=== PATIENT | male | born 1940 | race Caucasian/White ===

== ENCOUNTER 2024-02-24 02:56 | Observation (INO) | payer MEDICARE ==
[~2024-02-24] VITALS: Ht 188 cm; Wt 90.0 kg
[2024-02-24] VITALS (18 sets, daily range): BP systolic 82–125; BP diastolic 49–77
[2024-02-24] MEDS ORDERED: Ondansetron HCl 2 MG / ML 2ML Vial IV PRN ×3 (03:15→06:20)
[2024-02-24 03:34] LABS: BASOPHILS ABSOLUTE AUTO 0.03 K/mm3 (0.00-0.23); BASOPHILS PERCENT AUTO 1 % (0-2); EOSINOPHILS ABSOLUTE AUTO 0.24 K/mm3 (0.00-0.68); EOSINOPHILS PERCENT AUTO 5 % (0-6); Hematocrit 43.6 % (37.0-53.0); Hemoglobin 14.4 g/dL (13.5-17.5); IMMATURE GRAN ABSOLUTE AUTO 0.01 K/mm3 (0.00-0.10); IMMATURE GRAN PERCENT AUTO 0 % (0-1); LYMPHOCYTES ABSOLUTE AUTO 2.05 K/mm3 (0.84-5.20); LYMPHOCYTES PERCENT AUTO 40 % (21-46); MONOCYTES ABSOLUTE AUTO 0.47 K/mm3 (0.16-1.47); MONOCYTES PERCENT AUTO 9 % (4-13); Mean Corpuscular HGB 29.9 pg (26.0-34.0); Mean Corpuscular Volume 91 fL (80-100); Mean Platelet Volume 12.7 fL (9.1-12.4); NEUTROPHILS ABSOLUTE AUTO 2.36 K/mm3 (1.96-9.15); NEUTROPHILS PERCENT AUTO 46 % (41-73); Platelet Count 182 K/mm3 (150-400); RDW Coefficient Variation 12.7 % (11.7-14.2); RDW Standard Deviation 41.8 fL (35.1-46.3); Red Blood Cell Count 4.81 M/mm3 (4.30-5.90); White Blood Cell Count 5.16 K/mm3 (4.00-11.30)
[2024-02-24] MEDS ORDERED: Aspirin 81 MG Chew PO ONE (03:35)
[2024-02-24] MEDS ORDERED: Nitroglycerin 0.4 MG SUBL SL PRN ×2 (03:35→06:10)
[2024-02-24 03:53] LABS: Albumin, Blood 3.5 g/dL (3.4-5.0); Albumin/Globulin Ratio 1.1 (0.8-1.8); Bilirubin, Total 0.5 mg/dL (0.1-1.0); Bun/Creatinine Ratio 23.9 (12.0-20.0); Calcium, Blood 10.8 mg/dL (8.5-10.1); Creatinine, Blood 1.13 mg/dL (0.60-1.20); Globulin, Blood 3.3 g/dL (2.2-4.0); Potassium, Blood 3.8 mmol/L (3.5-5.5); Total Protein, Blood 6.8 g/dL (6.4-8.2)
[2024-02-24] MEDS ORDERED: NS 1,000 ML IV SCH ×3 (04:10→23:50)
[2024-02-24] MEDS ORDERED: Heparin Sodium 5000 Units/ML 1ML MDV IV ONE (04:10)
[2024-02-24] MEDS ORDERED: Ticagrelor 90 MG TABLET PO ONE ×2 (04:10→06:15)
[2024-02-24] MEDS ORDERED: Midazolam HCl 1MG / ML 2ML Vial ONE ×2 (04:31→05:10)
[2024-02-24] MEDS ORDERED: FentaNYL Citrate 50 MCG/ML 2 ML Injection ONE ×2 (04:31→05:22)
[2024-02-24] MEDS ORDERED: NS 2,000 ML IV ONE (04:32)
[2024-02-24] MEDS ORDERED: Nitroglycerin 2 MG/20 ML BTL ONE (04:32)
[2024-02-24] MEDS ORDERED: NiCARdipine HCL 1,000 MCG/5 ML SYR ONE (04:32)
[2024-02-24] MEDS ORDERED: Heparin Sodium 1000 Units/ML 10ML MDV ONE (04:32)
[2024-02-24] MEDS ORDERED: NS 250 ML IV ONE (04:33)
[2024-02-24] MEDS ORDERED: Atropine Sulfate 0.1 MG/ML 10ML SYR ONE (04:50)
[2024-02-24] MEDS ORDERED: Phenylephrine HCl 100 MCG/ML-NS 10MLSYR (1MG/10ML) ONE (05:19)
[2024-02-24] MEDS ORDERED: Acetaminophen 325 MG TABLET PO PRN (06:10)
[2024-02-24] MEDS ORDERED: Acetaminophen/Codeine 300-30 mg PO PRN (06:10)
[2024-02-24] MEDS ORDERED: Heparin Sodium,Porcine 5,000 UNIT/0.5 ML SDV SC ONE (06:15)
[2024-02-24] MEDS ORDERED: FentaNYL Citrate 50 MCG/ML 2 ML Injection IV PRN (06:20)
[2024-02-24] MEDS ORDERED: FLU VACC TS2024-25(6MOS UP)/PF 45 MCG/0.5 ML SYRINGE IM SCH (06:20)
[2024-02-24 06:46] LABS: Hematocrit 42.6 % (37.0-53.0); Hemoglobin 13.7 g/dL (13.5-17.5); Mean Corpuscular HGB 30.1 pg (26.0-34.0); Mean Corpuscular HGB Conc 32.2 g/dL (31.5-36.5); Mean Corpuscular Volume 94 fL (80-100); Mean Platelet Volume 12.9 fL (9.1-12.4); Platelet Count 148 K/mm3 (150-400); RDW Coefficient Variation 12.7 % (11.7-14.2); RDW Standard Deviation 43.8 fL (35.1-46.3); Red Blood Cell Count 4.55 M/mm3 (4.30-5.90); White Blood Cell Count 6.44 K/mm3 (4.00-11.30)
[2024-02-24 07:27] LABS: Anion Gap 8 mmol/L (3-11); Blood Urea Nitrogen 26 mg/dL (8-24); Bun/Creatinine Ratio 25.7 (12.0-20.0); CHOL/HDL RATIO 3.6; CO2, Blood 24 mmol/L (21-32); Chloride, Blood 113 mmol/L (98-108); Cholesterol 160 mg/dL (50-200); Creatinine, Blood 1.01 mg/dL (0.60-1.20); Glomerular Filtration Rate 74 (60-); Glucose, Blood 101 mg/dL (70-99); HDL Cholesterol 44 mg/dL (>39); LDL/HDL RATIO 2.4; Low Density Lipoprotein Chol 106 mg/dL (0-110); Potassium, Blood 3.8 mmol/L (3.5-5.5); Sodium, Blood 141 mmol/L (136-145); Triglycerides 49 mg/dL (30-160); Very Low Density Lipoprot Chol 9 mg/dL (6-32)
[2024-02-24] MEDS ORDERED: Pantoprazole Sodium 40 MG Tab PO SCH (07:30)
[2024-02-24] MEDS ORDERED: Apixaban 5 MG Tab PO SCH (09:00)
[2024-02-24] MEDS ORDERED: Enoxaparin 40 MG/0.4 ML SYR SC SCH (09:00)
[2024-02-24] MEDS ORDERED: NS 500 ML IV PRN (11:40)
--- NOTE | 2024-02-24 18:29 | NUR ---
Summary. Pt alert and oriented, independent in room. Requires help with cords/lines when ambulating in room otherwise staff not needed for ADLs. R/radial access site intact, occlusive dressing in place. TR band deflated and removed this morning, armboard remains in place. Per Dr. Foster, if patient remains stable overnight, there is a good chance he can be discharged tomorrow from cardiology viewpoint. Pt asymptomatic all shift, no acute events. See chart for further details.
--- NOTE | 2024-02-24 20:56 | NUR ---
Assumed care of pt at 1900. Pt up in room to use restroom, at bedside. Line assist provided. Pt reports bm and that he voided. Sts regular w/ no complaints. PT returns self to bed. Reports mild sob after ambulating. Denies cp or other symptoms. Pt is alert and oriented, cooperative w/ care. Lung sounds clear, pt maintaining 02 sats >95% on room air. Pt on continuous linen clerk- afib rate of 60s. Bp stable. Arm board in place to r. wrist. R. radial site assessed and is clean, dry, intact. No hematoma or oozing observed. Pt provided call light and boosted in bed, denies further needs. Plan of care ongoing.
[2024-02-24] MEDS ORDERED: Clopidogrel Bisulfate 300 MG Cap PO ONE (21:00)
[2024-02-24] MEDS ORDERED: Atorvastatin 40 MG Tab PO SCH (21:00)
[2024-02-24] MEDS ORDERED: Ticagrelor 90 MG TABLET PO SCH (21:00)
--- NOTE | 2024-02-24 23:48 | NUR ---
Provider Chet called regarding low bps depsite 500ml bolus. Orders for additional bolus of 500ml of ns, followed by maintenance fluids at 150ml/hr ns. Will continue to monitor.
[2024-02-25] VITALS (8 sets, daily range): BP systolic 87–111; BP diastolic 53–91
--- NOTE | 2024-02-25 03:02 | NUR ---
TRANSFER SUMMARY PT TX TO PCU ROOM 19 VIA W/C, ACCOMPANIED BY THIS RN. PT ALERT AND ORIENTED. BELONGINGS INCLUDING PHONE, GLASSES, AND CLOTHING BROUGHT WITH PT. REPORT GIVEN TO PATRICIA CONCEPCION.
--- NOTE | 2024-02-25 03:18 | NUR ---
PT TRANSFERRED FROM ICU 16 TO PCU 19. PT ALERT AND ORIENTED TO BASELINE, ABLE TO STAND AND TRANSFER FROM WHEELCHAIR TO PCU BED. PT WIHT R RADIAL SITE CLEAR DRESSING IN PLACE, NO HEMATOMA OR BLEEDING NOTED AROUND THE SITE. VITALS HRR SR 75, SBP 110'S MAP >65, SATS ABOVE 95% ON RA, AFEBRILE. PT DENIES ANY CHCEST PAIN OR DISCOMFORT OR ANY SOB WIHT EXERTION. PT WENT BACK TO BED CURRENTLY RESTING. CALL LIGHTS IN REACH WILL CONTINUE TO MONITOR
[2024-02-25 04:28] LABS: BASOPHILS ABSOLUTE AUTO 0.03 K/mm3 (0.00-0.23); BASOPHILS PERCENT AUTO 1 % (0-2); EOSINOPHILS ABSOLUTE AUTO 0.17 K/mm3 (0.00-0.68); EOSINOPHILS PERCENT AUTO 3 % (0-6); Hematocrit 39.5 % (37.0-53.0); Hemoglobin 12.5 g/dL (13.5-17.5); IMMATURE GRAN ABSOLUTE AUTO 0.01 K/mm3 (0.00-0.10); IMMATURE GRAN PERCENT AUTO 0 % (0-1); LYMPHOCYTES ABSOLUTE AUTO 1.23 K/mm3 (0.84-5.20); LYMPHOCYTES PERCENT AUTO 22 % (21-46); MONOCYTES ABSOLUTE AUTO 0.49 K/mm3 (0.16-1.47); MONOCYTES PERCENT AUTO 9 % (4-13); Mean Corpuscular HGB 29.5 pg (26.0-34.0); Mean Corpuscular HGB Conc 31.6 g/dL (31.5-36.5); Mean Corpuscular Volume 93 fL (80-100); Mean Platelet Volume 12.4 fL (9.1-12.4); NEUTROPHILS ABSOLUTE AUTO 3.64 K/mm3 (1.96-9.15); NEUTROPHILS PERCENT AUTO 65 % (41-73); Platelet Count 150 K/mm3 (150-400); RDW Standard Deviation 44.7 fL (35.1-46.3); Red Blood Cell Count 4.24 M/mm3 (4.30-5.90); White Blood Cell Count 5.57 K/mm3 (4.00-11.30)
[2024-02-25 04:56] LABS: Albumin, Blood 2.7 g/dL (3.4-5.0); Albumin/Globulin Ratio 1.1 (0.8-1.8); Bilirubin, Total 0.6 mg/dL (0.1-1.0); Bun/Creatinine Ratio 17.9 (12.0-20.0); Calcium, Blood 9.5 mg/dL (8.5-10.1); Creatinine, Blood 1.12 mg/dL (0.60-1.20); Globulin, Blood 2.5 g/dL (2.2-4.0); Potassium, Blood 3.9 mmol/L (3.5-5.5); Total Protein, Blood 5.2 g/dL (6.4-8.2)
[2024-02-25] MEDS ORDERED: Aspirin 81 MG TabEC PO SCH (09:00)
[2024-02-25] MEDS ORDERED: Clopidogrel Bisulfate 75 MG Tab PO SCH (09:00)
[2024-02-25] MEDS ORDERED: ACET325 PO (09:37)
[2024-02-25] MEDS ORDERED: ELIQUIS5 M2 PO (09:37)
[2024-02-25] MEDS ORDERED: ATOR80 PO (09:38)
[2024-02-25] MEDS ORDERED: CLOP75 PO (09:38)
[2024-02-25] MEDS ORDERED: PANT40 PO (09:39)
[2024-02-25] MEDS ORDERED: NITR.4SL SL (10:10)
--- NOTE | 2024-02-25 10:50 | NUR ---
DISCHARG SUMMARY PT A&O X4, OBEYS COMMANDS AND ABLE TO MAKE NEEDS KNOWN, PT ABULATING IN ROOM IND. VSS. PT CONVERTED TO SINUS RHYTHMC @ APPROX 0750 THIS SHIFT. CARDIOLOGY ROUNDED ON PT @ APPROX 0740 AND PROVIED PT WITH EDUCATION AND UPDATES TO PLAN OF CARE. EDUCATION PROVIDED TO PT AND ABOUT NEW MEDICATIONS, FOLLOW UP APPOINTMENTS, SITE CARE AND PERCAUTIONS.IV REMOVED AND ALL BELONGINGS TAKEN WITH PT. PT WALKED OUT WITH MEDICAL STAFF.
== END 2024-02-25 10:25 | disposition home or self-care (01) ==
LOC: ER 02:56 → ICUE 02:57 → PCU 02:57 → ICUE 04:09 → ER 04:09 → ICUE 06:06 → PCU 02-25 02:53
PROVIDERS: Emergency Medicine; Internal Medicine Cardiovascular Disease; ADMIT Internal Medicine
DX: I21.19 ST elevation (STEMI) myocardial infarction involving other coronary artery of inferior wall (principal); I48.19 Other persistent atrial fibrillation; E78.5 Hyperlipidemia, unspecified; Z87.891 Personal history of nicotine dependence
CPT/HCPCS: 36415; 71045; 76937; 80048; 80053; 80061; 83690; 84484; 85025; 85027; 85347; 93005; 93010; 93454; 96374; 96375; 99152; 99153; 99285-25; A9270; C1725; C1769; C1874; C1887; C1894; C8929; C9600; C9606; G0378; J0461; J1644; J2250; J2371; J2405; J3010; J7030; J7040; J7050; Q9957; Q9967

== ENCOUNTER 2024-05-25 12:02 | Emergency (ER) | payer MEDICARE ==
[~2024-05-25] VITALS: Ht 182.9 cm; Wt 87.5 kg
[~2024-05-25 12:02] MED LIST: ACET325 PO; ATOR80 PO; CLOP75 PO; ELIQUIS5 M2 PO; NITR.4SL SL; PANT40 PO
[2024-05-25 15:01] VITALS: BP 120/82
[2024-05-25] MEDS ORDERED: Silver Nitr/Potassium Nitrate 1 EA APPL TOP ONE (15:20)
[2024-05-26] MEDS ORDERED: Aspir 8181 MG PO (11:10)
== END 2024-05-25 15:27 | disposition home or self-care (01) ==
LOC: ER 12:02
DX: R04.0 Epistaxis (principal); Z79.02 Long term (current) use of antithrombotics/antiplatelets; Z79.899 Other long term (current) drug therapy
CPT/HCPCS: 30901; 99283-25; A9270

== ENCOUNTER 2024-05-26 10:45 | Day surgery (SDC) | payer MEDICARE ==
[~2024-05-26] VITALS: Ht 185.4 cm; Wt 87.5 kg
[2024-05-26] VITALS (9 sets, daily range): BP systolic 104–141; BP diastolic 59–85
[2024-05-26] MEDS ORDERED: Verapamil HCL 2.5 MG/ML 2ML Injection ONE (11:01)
[2024-05-26] MEDS ORDERED: NS 250 ML IV ONE (11:02)
[2024-05-26] MEDS ORDERED: Nitroglycerin 2 MG/20 ML BTL ONE (11:02)
[2024-05-26] MEDS ORDERED: Heparin Sodium 1000 Units/ML 10ML MDV ONE ×2 (11:02→12:24)
[2024-05-26] MEDS ORDERED: NS 1,000 ML IV ONE ×2 (11:02→11:55)
[2024-05-26] MEDS ORDERED: Aspir 8181 MG PO (11:10)
[2024-05-26] MEDS ORDERED: Aspirin 81 MG Chew ONE (11:23)
[2024-05-26] MEDS ORDERED: Midazolam HCl 1MG / ML 2ML Vial ONE ×2 (11:55→12:47)
[2024-05-26] MEDS ORDERED: FentaNYL Citrate 50 MCG/ML 2 ML Injection ONE ×2 (11:55→12:36)
[2024-05-26] MEDS ORDERED: Atropine Sulfate 0.1 MG/ML 10ML SYR ONE (12:31)
--- NOTE | 2024-05-26 14:39 | NUR ---
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 PT AWAKE AND ALERT, DENIES C/P PAIN. RIGHT RADIAL TR BAND SITE REVIEWED W TECH. 12CC TO TR BAND. WRIST IMMOBILIZER IN PLACE. SMALL AMT OF SWELLING NOTED ABOVE TR BAND PROXIMAL AREA, AREA VERY SOFT. AT 1350 SWELLING ABOVE WRIST SLIGHTLY LARGER (DIME SIZED) AND SLIGHTLY FIRM. SITE REVIEWED W TECH, MANUAL PRESSURE HELD FOR 10MIN. AREA NOW SOFT AND CONTINUES TO BE SOFT W/O SIGNS OF SWELLING. PT TOLERATED FLUIDS AND LUNCH. VSS. PT'S AT SIDE.
--- NOTE | 2024-05-26 15:45 | NUR ---
1545- ALL OF AIR REMOVED FROM TR BAND OVER 30MIN PERIOD. RIGHT WRIST STABLE W/O SWELLING, HEMATOMA, PAIN, OR BLEEDING. DR JARAMILLO IN TO SPEAK WITH PATIENT AND PATIENTS .
--- NOTE | 2024-05-26 16:19 | NUR ---
VERBAL AND WRITTEN DISCHARGE INFORMATION GIVEN TO PATIENT AND PT'S WITH CLEAR UNDERSTANDING. VSS. RIGHT RADIAL SITE REMAINS STABLE.
--- NOTE | 2024-05-26 16:40 | NUR ---
TR band removed, drsg placed, wrist immobilizer placed. Right radial site stable. Pt dc'd home in stable condition via w/c in care of at 1640.
== END 2024-05-26 16:47 | disposition home or self-care (01) ==
LOC: MHTC 10:45 → ORSCMMR 10:45 → MHTC 10:58
DX: I21.29 ST elevation (STEMI) myocardial infarction involving other sites (principal); I48.19 Other persistent atrial fibrillation; I25.10 Atherosclerotic heart disease of native coronary artery without angina pectoris; I10 Essential (primary) hypertension; E78.5 Hyperlipidemia, unspecified; Z79.01 Long term (current) use of anticoagulants; Z79.02 Long term (current) use of antithrombotics/antiplatelets; Z79.899 Other long term (current) drug therapy; Z95.5 Presence of coronary angioplasty implant and graft
CPT/HCPCS: 76937; 85347; 93005; 93010; 93454; 99152; 99153; A9270; C1725; C1753; C1769; C1874; C1887; C1894; C9600; J0461; J1644; J2250; J3010; J7030; J7050; Q9967

== ENCOUNTER 2024-06-01 18:32 | Emergency (ER) | payer MEDICARE ==
[~2024-06-01] VITALS: Ht 182.9 cm; Wt 81.7 kg
[~2024-06-01 18:32] MED LIST changes: +Aspir 8181 MG PO
[2024-06-01 18:42] VITALS: BP 111/92
[2024-06-01] MEDS ORDERED: Silver Nitr/Potassium Nitrate 1 EA APPL TOP ONE ×2 (20:50→21:05)
== END 2024-06-01 22:15 | disposition home or self-care (01) ==
LOC: ER 18:32
DX: R04.0 Epistaxis (principal); Z79.82 Long term (current) use of aspirin; Z79.02 Long term (current) use of antithrombotics/antiplatelets; Z79.899 Other long term (current) drug therapy
CPT/HCPCS: 30903; 99283-25; A9270